=== PATIENT | female | born 2000 | race Caucasian/White ===

== ENCOUNTER 2021-04-19 12:17 | Emergency (ER) | payer BC ==
[~2021-04-19] VITALS: Ht 165.1 cm; Wt 88.5 kg
[2021-04-19 12:56] LABS: HEMATOCRIT 36.5 % (37.0-47.0); HEMOGLOBIN 11.5 gm/dL (12.0-15.0); MCH 23.2 pg (26.0-34.0); MCHC 31.5 g/dL (28.0-37.0); MCV 73.7 fL (80.0-100.0); MPV 8.5 fl. (7.2-11.1); NUCLEATED RBCS 0 /100WBC; PLATELET COUNT* 310 thou/uL (150-400); RBC 4.95 mil/uL (4.20-5.00); RDW-CV 16.8 % (10.5-14.5); WBC 13.1 thou/uL (4.0-11.0)
[2021-04-19 12:56] LABS: URINE BILIRUBIN NEGATIVE (Negative); URINE BLOOD 3+ (Negative); URINE CLARITY CLEAR; URINE COLOR YELLOW; URINE GLUCOSE-RANDOM NEGATIVE (Negative); URINE KETONES TRACE (Negative); URINE LEUKOCYTES-REFLEX NEGATIVE (Negative); URINE NITRITE-REFLEX NEGATIVE (Negative); URINE PROTEIN 1+ (Negative); URINE SPECIFIC GRAVITY 1.015 (1.005-1.030)
[2021-04-19 13:06] LABS: CALCIUM 8.7 mg/dL (8.5-10.1); POTASSIUM 3.7 mmol/L (3.5-5.1)
[2021-04-19 13:10] LABS: ALBUMIN 3.8 g/dL (3.4-5.0); TOTAL BILIRUBIN 0.2 mg/dL (<0.1-1.0)
[2021-04-19 13:29] LABS: BACTERIA-REFLEX >30 Many /HPF (None Seen); CASTS None Seen /LPF (None Seen); CRYSTALS None Seen /LPF (None Seen); SQUAMOUS 0-3 Few /LPF (0-3); URINE RBC 0-2 Rare /HPF (0-2); URINE WBC-REFLEX 6-15 Few /HPF (0-5)
[2021-04-19 13:34] LABS: ABSOLUTE MONOCYTES 0.1 thou/uL (0.0-1.2); PLATELET ESTIMATE ADEQUATE
[2021-04-19] MEDS ORDERED: NORCO5 PO ×2 (14:14→14:18)
[2021-04-19] MEDS ORDERED: FLOMAX0.4 MG PO (14:14)
[2021-04-19] MEDS ORDERED: ONDANSETRON ODT4 MG PO (14:14)
[2021-04-19] MEDS ORDERED: IBUPROFEN 600600 M1 PO (14:14)
[2021-04-19 14:26] VITALS: BP 119/54
== END 2021-04-19 14:27 | disposition home or self-care (01) ==
LOC: M.ERS 12:17
PROVIDERS: Physician Assistant
DX: N20.1 Calculus of ureter (principal); F90.9 Attention-deficit hyperactivity disorder, unspecified type

== ENCOUNTER 2021-10-20 22:41 | Emergency (ER) | payer OTHER ==
[~2021-10-20] VITALS: Ht 162.6 cm; Wt 83.9 kg
[~2021-10-20 22:41] MED LIST: FLOMAX0.4 MG PO; IBUPROFEN 600600 M1 PO; NORCO5 PO; ONDANSETRON ODT4 MG PO
[2021-10-20 22:54] LABS: URINE BILIRUBIN NEGATIVE (Negative); URINE BLOOD 2+ (Negative); URINE CLARITY CLEAR; URINE COLOR YELLOW; URINE GLUCOSE-RANDOM NEGATIVE (Negative); URINE KETONES TRACE (Negative); URINE LEUKOCYTES-REFLEX NEGATIVE (Negative); URINE NITRITE-REFLEX NEGATIVE (Negative); URINE PROTEIN NEGATIVE (Negative)
[2021-10-20 23:02] LABS: SQUAMOUS >10 Many /LPF (0-3)
[2021-10-20 23:03] LABS: MUCUS None Seen strn/LPF (None Seen)
[2021-10-20 23:04] LABS: CRYSTALS None Seen /LPF (None Seen); HYALINE CASTS 0-3 Few /LPF (None Seen); URINE RBC 0-2 Rare /HPF (0-2); URINE WBC-REFLEX 0-5 Rare /HPF (0-5)
[2021-10-20 23:34] LABS: ABSOLUTE EOSINOPHILS 0.1 thou/uL (0.0-0.7); ABSOLUTE LYMPHOCYTES 1.5 thou/uL (0.8-5.3); ABSOLUTE MONOCYTES 0.6 thou/uL (0.0-1.2); ABSOLUTE NEUTROPHILS 11.7 thou/uL (1.6-8.1); BASOPHILS 0.2 %; EOSINOPHILS 0.6 %; HEMATOCRIT 35.1 % (37.0-47.0); HEMOGLOBIN 11.2 gm/dL (12.0-15.0); LYMPHOCYTES 11.1 %; MCH 24.1 pg (26.0-34.0); MCHC 31.9 g/dL (28.0-37.0); MCV 75.5 fL (80.0-100.0); MONOCYTES 4.4 %; MPV 8.4 fl. (7.2-11.1); NUCLEATED RBCS 0 /100WBC; PLATELET COUNT* 304 thou/uL (150-400); POLYS 83.7 %; RBC 4.66 mil/uL (4.20-5.00); RDW-CV 15.9 % (10.5-14.5); WBC 13.9 thou/uL (4.0-11.0)
[2021-10-20 23:37] LABS: CALCIUM 8.9 mg/dL (8.5-10.1); CREATININE 0.8 mg/dL (0.6-1.3); POTASSIUM 3.7 mmol/L (3.5-5.1)
[2021-10-21 00:42] VITALS: BP 110/83
== END 2021-10-21 00:43 | disposition home or self-care (01) ==
LOC: M.ERS 22:41
PROVIDERS: Emergency Medicine
DX: R10.13 Epigastric pain (principal)